=== PATIENT | female | born 1945 | race Caucasian/White ===

== ENCOUNTER 2022-05-21 09:54 | Outpatient (CLI) | payer MEDICARE | END 2022-05-21 09:55 | disposition home or self-care (01) | LOC: CSHMAMMO 09:54 | PROVIDERS: ATTEND Nurse Practitioner Family | DX: Z53.9 Procedure and treatment not carried out, unspecified reason (principal) ==

== ENCOUNTER 2023-07-19 13:29 | Outpatient (CLI) | payer MEDICARE | END 2023-07-19 13:30 | disposition home or self-care (01) | LOC: CSHMAMMO 13:29 | PROVIDERS: ATTEND Nurse Practitioner Family | DX: Z12.31 Encounter for screening mammogram for malignant neoplasm of breast (principal) | CPT/HCPCS: 77063; 77067 ==

== ENCOUNTER 2024-07-20 13:27 | Outpatient (CLI) | payer MEDICARE | END 2024-07-20 13:28 | disposition home or self-care (01) | LOC: CSHMAMMO 13:27 | PROVIDERS: ATTEND Nurse Practitioner Family | DX: Z12.31 Encounter for screening mammogram for malignant neoplasm of breast (principal); Z13.820 Encounter for screening for osteoporosis; M85.88 Other specified disorders of bone density and structure, other site | CPT/HCPCS: 77063; 77067; 77080 ==

== ENCOUNTER 2024-09-08 10:59 | Outpatient (CLI) | payer MEDICARE ==
[2024-09-08 12:17] LABS: #Basophils 0.05 10x3/uL (0.0-0.2); #Eosinophils 0.31 10x3/uL (0.0-0.5); #Monocytes 0.93 10x3/uL (0.0-1.1); #Neutrophils 5.33 10x3/uL (1.5-8.4); %Basophils 0.6 % (0.0-2.0); %Eosinophils 3.8 % (0.0-6.0); %Monocytes 11.5 % (0.0-10.0); %Neutrophils 65.9 % (40.0-75.0); Hematocrit 38.5 % (34.9-44.5); Hemoglobin 11.7 g/dL (12.0-15.5); Mean Corpuscular HGB CONC 30.4 g/dL (32.0-36.0); Mean Corpuscular Hemoglobin 26.1 pg (27.0-33.0); Mean Corpuscular Volume 85.7 fL (81.6-98.3); Mean Platelet Volume 9.4 fL (7.4-10.4); Platelet Count 325 10x3/uL (150-450); RBC Distribution Width 19.9 % (11.5-14.5); Red Blood Cell (RBC) Count 4.49 10x6/uL (3.90-5.03); White Blood Cell (WBC) Count 8.1 10x3/uL (3.5-10.5)
[2024-09-08 12:27] LABS: Anion Gap 16 mmol/L (10-20); BUN (Urea Nitrogen) 13 mg/dL (9.8-20.1); Calc. Creatinine Clearance 0 mL/min (70-130); Calcium 9.8 mg/dL (7.8-10.44); Carbon Dioxide 24 mmol/L (23-31); Chloride 106 mmol/L (98-107); Estimated GFR 88; Glucose 82 mg/dL (83-110); Potassium 4.1 mmol/L (3.5-5.1); Sodium 142 mmol/L (136-145)
== END 2024-09-08 11:00 | disposition home or self-care (01) ==
LOC: CSHLAB 10:59
PROVIDERS: ATTEND Specialist
DX: Z01.818 Encounter for other preprocedural examination (principal); C18.9 Malignant neoplasm of colon, unspecified; R94.31 Abnormal electrocardiogram [ECG] [EKG]
CPT/HCPCS: 71046; 80048; 83036; 85025; 93005; 93010

== ENCOUNTER 2024-09-08 13:00 | Inpatient (IN) | payer MEDICARE ==
[2024-09-08 11:16] VITALS: BMI 27.4
[2024-09-29] MEDS ORDERED: fentaNYL 50 mcg/mL 1 mL Vial ONE ×2 (06:52→10:34)
[2024-09-29] MEDS ORDERED: PROPOFOL 20 ML ONE (06:52)
[2024-09-29] MEDS ORDERED: Rocuronium Bromide 10 MG/ML (10ML VIAL) ONE (06:53)
[2024-09-29] MEDS ORDERED: Ondansetron PF 4 MG/2 ML Vial ONE (06:53)
[2024-09-29] MEDS ORDERED: Lidocaine 1% PF 5 ML VIAL ONE (06:53)
[2024-09-29] MEDS ORDERED: Dexamethasone 4 mg/ml Vial ONE ×2 (06:53→07:45)
[2024-09-29] MEDS ORDERED: Acetaminophen 500 MG TAB ONE (08:07)
[2024-09-29] MEDS ORDERED: Ketorolac Tromethamine 30 MG (1 mL) VIAL ONE (08:07)
[2024-09-29] MEDS ORDERED: Lidocaine 1% w/Epinephrine 1:200K 30 ML VIAL ONE (08:07)
[2024-09-29] MEDS ORDERED: ePHEDrine Sulfate 50 MG/10 ML VIAL ONE (08:09)
[2024-09-29] MEDS ORDERED: SUGAMMADEX SODIUM 200 MG/2 ML VIAL ONE (10:17)
[2024-09-29] MEDS ORDERED: Promethazine HCl 25 MG/ML VIAL IM PRN (11:20)
[2024-09-29] MEDS ORDERED: Morphine 2 MG/ML VIAL SLOW IVP PRN (11:20)
[2024-09-29] MEDS ORDERED: Ipratropium/Albuterol 3 ML NEB NEB PRN (11:20)
[2024-09-29] MEDS ORDERED: Ondansetron PF 4 MG/2 ML Vial IVP PRN (11:20)
[2024-09-29] MEDS ORDERED: Morphine 4 MG/ML VIAL SLOW IVP PRN (11:20)
[2024-09-29] MEDS: D5 1/2 NS w/20 mEq KCL 1,000 ML IV SCH (13:24)
[2024-09-29] MEDS: Ketorolac Tromethamine 30 MG (1 mL) VIAL IVP SCH (13:24)
[2024-09-29] MEDS: Famotidine 20 MG TAB PO SCH (21:29)
[2024-09-29] MEDS: Enoxaparin 40 MG (0.4 mL) SYRINGE SC SCH (21:29)
[2024-09-29] MEDS: Famotidine/PF 20 mg/2ml Vial SLOW IVP SCH (22:40)
[2024-09-30 03:40] LABS: Hematocrit 34.4 % (34.9-44.5); Hemoglobin 11.1 g/dL (12.0-15.5); MDiff Complete? YES; Mean Corpuscular HGB CONC 32.3 g/dL (32.0-36.0); Mean Corpuscular Hemoglobin 27.9 pg (27.0-33.0); Mean Corpuscular Volume 86.4 fL (81.6-98.3); Mean Platelet Volume 9.3 fL (7.4-10.4); Platelet Count 299 10x3/uL (150-450); RBC Distribution Width 17.1 % (11.5-14.5); Red Blood Cell (RBC) Count 3.98 10x6/uL (3.90-5.03); White Blood Cell (WBC) Count 13.6 10x3/uL (3.5-10.5)
[2024-09-30 03:51] LABS: Anion Gap 12 mmol/L (10-20); BUN (Urea Nitrogen) 20 mg/dL (9.8-20.1); Calc. Creatinine Clearance 60 mL/min (70-130); Calcium 9.3 mg/dL (7.8-10.44); Carbon Dioxide 20 mmol/L (23-31); Chloride 108 mmol/L (98-107); Estimated GFR 63; Glucose 179 mg/dL (83-110); Potassium 4.9 mmol/L (3.5-5.1); Sodium 135 mmol/L (136-145)
[2024-09-30 04:21] LABS: Band 5 % (5-11); Lymphocytes 8 % (21-51); Monocytes 8 % (0-10); Neutrophil 78 % (42-75); Reactive Lymphocytes 1 % (0-10)
[2024-09-30 04:28] LABS: Anisocytosis SLIGHT = 6-15 cells (100X) (0-5/hpf)
[2024-09-30 04:29] LABS: Elliptocytes SLIGHT = 2-5 cells (100X) (0-1/hpf); Ovalocytes SLIGHT = 2-5 cells (100X) (0-1/hpf); Platelet Adequacy Comment Appears Adequate
[2024-09-30] MEDS: Losartan 25 MG TAB PO SCH (08:26)
[2024-09-30] MEDS: Amlodipine 5 MG TAB PO SCH (08:26)
[2024-09-30] MEDS: Aspirin 81 mg Enteric Coated Tablet PO SCH (08:26)
[2024-09-30] MEDS ORDERED: HYDROcodone/Acetaminophen 7.5/325 mg Tablet PO PRN (10:53)
[2024-09-30] MEDS ORDERED: Acetaminophen 325 MG TAB PO PRN (10:53)
[2024-09-30] MEDS: hydrALAZINE 20 MG/ML VIAL SLOW IVP PRN (12:37)
[2024-09-30] MEDS: D5 1/2 NS w/20 mEq KCL 1,000 ML IV SCH (20:29)
[2024-10-01 11:38] VITALS: BP 146/78; TEMP 98.3
== END 2024-10-01 11:55 | disposition home or self-care (01) | DRG 330 ==
LOC: CSHERHOLD 09-15 06:18 → UNDOADMIN 09-15 06:18 → CSHTELE 09-29 06:23
PROVIDERS: ADMIT Specialist; ATTEND Specialist
PROC: 0DTF4ZZ Resection of Right Large Intestine, Percutaneous Endoscopic Approach (ICD-10-PCS; principal; 2024-09-29)
PROC: 8E0W4CZ Robotic Assisted Procedure of Trunk Region, Percutaneous Endoscopic Approach (ICD-10-PCS; 2024-09-29)
DX: C18.9 Malignant neoplasm of colon, unspecified (principal); C77.2 Secondary and unspecified malignant neoplasm of intra-abdominal lymph nodes
CPT/HCPCS: 36415; 36416; 80048; 85025; 88309; 94762; A4333; J0360; J1100; J1650; J1885; J2405; J2704; J3010; J3480; S2900

== ENCOUNTER 2024-11-03 09:27 | Day surgery (SDC) | payer MEDICARE ==
[2024-11-02 12:55] VITALS: BMI 28.2
[2024-11-03] MEDS ORDERED: Ketorolac Tromethamine 30 MG (1 mL) VIAL ONE (10:31)
[2024-11-03] MEDS ORDERED: Acetaminophen 500 MG TAB ONE (10:32)
[2024-11-03] MEDS ORDERED: Famotidine/PF 20 mg/2ml Vial ONE (10:39)
[2024-11-03] MEDS ORDERED: PROPOFOL 20 ML ONE (10:48)
[2024-11-03] MEDS ORDERED: Lidocaine 2% PF 5 ML VIAL ONE (10:49)
[2024-11-03] MEDS ORDERED: Bupivacaine/Epinephrine 0.25% 30 ML VIAL ONE (11:53)
[2024-11-03] MEDS ORDERED: CEFAZOLIN 2 GM VIAL ONE (12:04)
[2024-11-03] MEDS ORDERED: fentaNYL 50 mcg/mL 1 mL Vial ONE (12:24)
[2024-11-03] MEDS ORDERED: Dexamethasone 4 mg/ml Vial ONE (12:25)
[2024-11-03] MEDS ORDERED: Ondansetron PF 4 MG/2 ML Vial ONE (12:25)
[2024-11-03] MEDS ORDERED: ePHEDrine Sulfate 50 MG/10 ML VIAL ONE (12:37)
== END 2024-11-03 14:00 | disposition home or self-care (01) ==
LOC: CSHSDC 09:27
PROVIDERS: ATTEND Specialist
PROC: 0JH63WZ Insertion of Totally Implantable Vascular Access Device into Chest Subcutaneous Tissue and Fascia, Percutaneous Approach (ICD-10-PCS; principal; 2024-11-03)
DX: C18.9 Malignant neoplasm of colon, unspecified (principal); I10 Essential (primary) hypertension; M19.90 Unspecified osteoarthritis, unspecified site; E66.9 Obesity, unspecified; Z68.28 Body mass index [BMI] 28.0-28.9, adult; E78.5 Hyperlipidemia, unspecified; Z79.899 Other long term (current) drug therapy; Z98.890 Other specified postprocedural states; Z96.649 Presence of unspecified artificial hip joint; Z98.84 Bariatric surgery status
CPT/HCPCS: 36561; 71045; C1788; J1100; J1642; J1885; J2405; J2704; J3010; J3490

== ENCOUNTER 2025-07-22 12:13 | Outpatient (CLI) | payer MEDICARE | END 2025-07-22 12:14 | disposition home or self-care (01) | LOC: CSHMAMMO 12:13 | PROVIDERS: ATTEND Nurse Practitioner Family | DX: Z12.31 Encounter for screening mammogram for malignant neoplasm of breast (principal); Z85.038 Personal history of other malignant neoplasm of large intestine | CPT/HCPCS: 77063; 77067 ==